=== PATIENT | female | born 1985 | race Caucasian/White ===

== ENCOUNTER 2017-03-13 22:18 | Emergency (ER) | payer SELFPAY ==
[2015-09-10 15:29] VITALS: BMI 45.3
[~2017-03-13 22:18] MED LIST: ACETAMINOPHEN325 MG PO; IBUPROFEN600 MG PO; LOVENOX120 MG/0.8 SC; PRENAVITE1 TAB PO
[2017-03-13 23:38] LABS: HEMATOCRIT 39.9 % (36.0-48.0); HEMOGLOBIN 13.3 g/dL (12-16); LYMPHOCYTES 27.5 % (15-50); MCHC 33.3 g/dL (31.0-37.0); MCV 95.9 fL (80.0-100.0); MEAN PLATELET VOLUME 8.5 fL (7.4-10.4); NEUTROPHILS 66.4 % (40-80); PLATELET COUNT 398 10x3/uL (130-400); RBC 4.16 10x6/uL (4.00-5.40); RDW 12.9 % (11.5-14.5); WBC 12.2 10x3/uL (4.8-10.8)
[2017-03-13 23:54] LABS: ALBUMIN 3.2 g/dL (3.4-5.0); ANION GAP 13.5 mmol/L (8-16); CALCIUM 8.9 mg/dL (8.5-10.1); CARBON DIOXIDE 24.6 mmol/L (21.0-32.0); POTASSIUM - SERUM 4.1 mmol/L (3.5-5.1)
[2017-03-14 00:28] LABS: APPEARANCE HAZY (CLEAR); BILIRUBIN NEGATIVE (NEGATIVE); COLOR YELLOW (YELLOW); GLUCOSE NEGATIVE (NEGATIVE); KETONE NEGATIVE (NEGATIVE); LEUKOCYTE ESTERASE TRACE (NEGATIVE); NITRITE NEGATIVE (NEGATIVE); PROTEIN TRACE mg/dL (NEGATIVE); UROBILINOGEN NORMAL (NORMAL)
[2017-03-14 00:29] LABS: BACTERIA MANY /hpf (NONE SEEN); EPITHELIAL CELLS 0-5 /hpf (0-5); RED CELLS - URINE 0-5 /hpf (0-5); WHITE CELLS - URINE 0-5 /hpf (0-5)
[2017-03-14 00:40] LABS: BILIRUBIN - TOTAL 0.1 mg/dL (0.2-1.3)
== END 2017-03-14 01:19 | disposition home or self-care (01) ==
LOC: D.ER 22:18
PROVIDERS: Family Medicine
DX: M79.1 Myalgia (principal); O02.81 Inappropriate change in quantitative human chorionic gonadotropin (hCG) in early pregnancy; M79.662 Pain in left lower leg; M79.661 Pain in right lower leg